=== PATIENT | male | born 1970 | race Caucasian/White ===

== ENCOUNTER 2024-10-29 03:49 | Emergency (ER) | payer OTHER ==
[~2024-10-29] VITALS: Ht 177.8 cm; Wt 106.6 kg
[2024-10-29 03:58] VITALS: BP 136/70; TEMP 98.4; O2SAT 97
[2024-10-29] MEDS ORDERED: AMOX-430 PO (04:16)
== END 2024-10-29 04:25 | disposition home or self-care (01) ==
LOC: ER 03:53
DX: K04.7 Periapical abscess without sinus (principal); Z76.0 Encounter for issue of repeat prescription; Z60.2 Problems related to living alone